=== PATIENT | female | born 1990 | race Caucasian/White ===

== ENCOUNTER 2017-07-03 17:40 | Inpatient (IN) ==
[2017-07-03] MEDS ORDERED: ONDANSETRON 4 MG/2 ML VIAL IV PRN ×2 (17:48→17:56)
[2017-07-03] MEDS ORDERED: BUTORPHANOL 2 MG/ML VIAL IV PRN (17:48)
[2017-07-03] MEDS ORDERED: OXYTOCIN/LR 20 UNIT/1,000 ML BAG IV ONE ×2 (17:50→17:56)
--- NOTE | 2017-07-03 17:54 | OB/GYN History & Physical ---
History of Present Illness Chief complaint: Active labor ruptured membranes History of present illness: Ms. Nuñez is a 27 year old female 3 para 1 at 40 weeks estimated gestational age followed by Dr. Velasco who states she broke her bag of water an hour ago and consequently proceeded into the hospital from the [employer] [place]. On arrival patient did be completely dilated and . 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 General appearance: normal weight - Head Head exam: Present: normal inspection, normocephalic, atraumatic - Respiratory Respiratory exam: Present: clear to auscultation bilaterally - Breast Breasts: as per HPI Menstruation: as per HPI - Cardiovascular Cardiovascular exam: Present: regular rate and rhythm - GI/Abdominal GI/Abdominal exam: Present: normal bowel sounds - Extremities Exam Extremities exam: Present: normal inspection, normal capillary refill - Back Exam Back exam: Present: normal inspection - Neurological Exam Neurological exam: Present: alert, oriented X3 - Psychiatric Psychiatric exam: Present: normal affect, normal mood - Skin Skin exam: Present: normal color Assessment and Plan (1) 40 weeks gestation of Status: Acute Current Visit: Yes (2) Active labor Status: Acute Current Visit: Yes (3) Spontaneous rupture of membranes Status: Acute Current Visit: Yes
[2017-07-03] MEDS ORDERED: WITCH HAZEL PADS 100/JAR TOP PRN (17:56)
[2017-07-03] MEDS ORDERED: BISACODYL 10 MG SUPP RECTAL PRN (17:56)
[2017-07-03] MEDS ORDERED: BENZOCAINE 20%/MENTHOL 0.5% SPRAY 56 GM CAN TOP PRN (17:56)
[2017-07-03] MEDS ORDERED: ACETAMINOPHEN 325 MG TABLET PO PRN (17:56)
[2017-07-03] MEDS ORDERED: LANOLIN 50% CREAM 0.3 OZ TUBE TOP PRN (17:56)
[2017-07-03] MEDS ORDERED: oxyCODONE/ACETAMINOPHEN 5-325 MG TABLET PO PRN ×2 (17:56)
[2017-07-03] MEDS ORDERED: HYDROCORTISONE 2.5% RECTAL CREAM 30 GM TUBE TOP PRN (17:56)
--- NOTE | 2017-07-03 17:56 | OB/GYN Progress Note ---
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 Munroe dictating vaginal delivery And in LDR environment under sterile conditions, the patient progressed to completely dilated. She was allowed to push and under no anesthesia had a normal spontaneous vaginal delivery of a live born [male] unweighed [ Apgars 9 and 9] over a intact perineum. The 's nose and oropharynx were bulb and DeLee suctioned, and the had spontaneous cry after delivery. There is noted to be a nuchal cord 1 which was easily reduced the cord was doubly clamped and cut and the infant was handed over to the pediatric team for care. Cord blood was obtained the placenta delivered spontaneously intact and IV Pitocin was done. There were no cervical tears. There were no periurethral tears. Estimated blood loss was 250 mL. There were no complications. The bladder was emptied using a catheter prior to delivery. All sponge needle and instrument counts were correct -3 at the end of the delivery. The was taken to nursery in stable condition
[2017-07-03] MEDS ORDERED: LACTATED RINGERS 1,000 ML IV SCH (18:00)
[2017-07-03] MEDS ORDERED: RHO(D) IMMUNE GLOBULIN 300 MCG SYRINGE IM ONE (18:00)
[2017-07-03] MEDS ORDERED: MEASLES/MUMPS/RUBELLA VACCINE 0.5 ML VIAL SUBCUT ONE (18:00)
[2017-07-03] MEDS ORDERED: DIPH/TET/ACEL PERT BOOSTER VACCINE 0.5 ML VIAL IM ONE (18:00)
[2017-07-03 18:32] LABS: Basophils # 0.1 10*3/uL (0.0-0.2); Basophils % 0.5 % (0.0-0.8); Eosinophils # 0.6 10*3/uL (0.0-0.87); Eosinophils % 4.5 % (0.00-10.9); Hematocrit 40.9 VOL% (35.7-47.0); Hemoglobin 14.4 GM/DL (12.0-16.0); Immature Granulocytes % 0.6 %; Immature Granulocytes Absolute 0.08 #; Lymphocytes # 2.2 10*3/uL (1.4-4.0); Lymphocytes % 17.1 % (21.3-54.2); Mean Corpuscular HGB Conc 35.2 GM/DL (32-36); Mean Corpuscular Hemoglobin 31 PG (27-34); Mean Corpuscular Volume 87.2 FL (87-102); Mean Platelet Volume 10.6 FL (9.6-12.0); Monocytes # 0.8 10*3/uL (0.11-0.8); Monocytes % 6.3 % (1.7-12.7); Neutrophils # 9.3 10*3/uL (1.4-7.4); Platelet Count 117 T/CUMM (130-400); Red Blood Count 4.69 MC/CUMM (3.8-5.5); Red Cell Distribution Width 12.4 % (9.3-17.3)
[2017-07-03 18:58] LABS: Albumin 2.8 G/DL (3.4-5.0); Bilirubin,Total 0.8 MG/DL (0.2-1.0); Calcium 9.3 MG/DL (8.5-10.1); Osmolality,Calculated 272.8 MOS/KG (273-304); Potassium 3.5 MMOL/L (3.5-5.1); Total Protein 6.8 G/DL (6.4-8.3)
[2017-07-03] MEDS: DOCUSATE SODIUM 100 MG CAPSULE PO SCH (22:34)
[2017-07-03] MEDS: guaiFENesin 200 MG/10 ML UDCUP PO PRN (23:56)
[2017-07-03] MEDS: IBUPROFEN 800 MG TABLET PO PRN (23:56)
[2017-07-04] MEDS: guaiFENesin 200 MG/10 ML UDCUP PO PRN (04:25)
[2017-07-04 05:28] LABS: Basophils # 0.1 10*3/uL (0.0-0.2); Basophils % 0.4 % (0.0-0.8); Eosinophils # 0.4 10*3/uL (0.0-0.87); Eosinophils % 2.4 % (0.00-10.9); Hemoglobin 12.1 GM/DL (12.0-16.0); Immature Granulocytes Absolute 0.16 #; Lymphocytes # 1.6 10*3/uL (1.4-4.0); Lymphocytes % 9.6 % (21.3-54.2); Mean Corpuscular HGB Conc 34.6 GM/DL (32-36); Mean Corpuscular Hemoglobin 30 PG (27-34); Mean Corpuscular Volume 87.1 FL (87-102); Mean Platelet Volume 10.8 FL (9.6-12.0); Monocytes # 1.1 10*3/uL (0.11-0.8); Monocytes % 6.7 % (1.7-12.7); Neutrophils # 13.2 10*3/uL (1.4-7.4); Neutrophils % 79.9 % (38.7-73.9); Platelet Count 106 T/CUMM (130-400); Red Blood Count 4.02 MC/CUMM (3.8-5.5); Red Cell Distribution Width 12.2 % (9.3-17.3); White Blood Count 16.5 T/CUMM (4-12)
[2017-07-04] MEDS: IBUPROFEN 800 MG TABLET PO PRN ×2 (06:33→16:58)
[2017-07-04] MEDS: DOCUSATE SODIUM 100 MG CAPSULE PO SCH (08:57)
--- NOTE | 2017-07-04 09:26 | OB/GYN Progress Note ---
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: Patient is doing well she is eating ambulating and voiding She is afebrile and her vital signs are stable Her fundus is firm and contracted She has decreased lochia Assessment #1 day #1 doing well Plan continue present management with expected DC tomorrow Exam OFFICE MANAGER RECEPTIONIST - Constitutional Vitals: Vital Signs Temp Pulse Pulse Pulse Resp BP Pulse Ox 07/04/17 04:00 97.5 F L 87 20 125/70 97 07/03/17 23:56 98.5 F 91 H 20 125/83 98 07/03/17 23:00 98.0 F 90 20 134/81 97 07/03/17 22:00 98.9 F 101 H 20 118/81 97 07/03/17 21:30 97.2 F L 91 H 20 121/85 97 07/03/17 21:00 97.5 F L 86 20 117/72 96 07/03/17 20:00 98.7 F 85 85 17 136/86 Results - Labs CBC & BMP: 07/04/17 04:18 07/03/17 18:19
[2017-07-04 09:48] VITALS: BP 122/80
--- NOTE | 2017-07-05 10:56 | Discharge Summary ---
Hospital Course - Hospital Course Hospital Course: patient did well. She had quick return of bowel bladder function. She remained afebrile and normotensive throughout hospitalization. She requested early discharge of her baby was able to go home early. She is instructed to follow-up with her doctor in 2 weeks Diagnosis - Discharge Diagnosis (1) 40 weeks gestation of Status: Acute (2) Active labor Status: Acute (3) Spontaneous rupture of membranes Status: Acute Specialty Discharge - Follow Up or Referrals Follow up with: James Munroe MD [Primary Care Provider] - 2 Weeks (Please call office Thursday and schedule a 2 week follow up appointment) Discharge Plan - Discharge Data Condition at Discharge: Stable Discharge Diet: regular diet Activity: increase activity as tolerated, other (Pelvic rest) Hygiene: may shower Weight Bearing at Discharge: full weight bearing Driving: no restrictions Contact your physician if you experience:: fever over 101, Difficulty voiding, Redness or swelling, Nausea/Vomiting, Shortness of breath, Bleeding, pain uncontrolled by pain medications - Discharge Medications Continue Sertraline HCl 1 tablet PO DAILY - Follow Up or Referral Follow Up: James Munroe MD [Primary Care Provider] - 2 Weeks (Please call office Thursday and schedule a 2 week follow up appointment) - Forms/Instructions Instructions: Acetaminophen/Codeine (By mouth), Ibuprofen (By mouth), Perineal Care (DC), Vaginal Delivery (DC), Bleeding (DC) DS: Provider Date of admission: 07/03/17 17:53 Primary care physician: Marcela Webb Attending physician on admission: Marcela Webb Consults: 07/03/17 17:56 Consult to C 40A Crew Chief [CONS] Routine Consult C 40A Crew Chief: Breast Feeding Discharging clinician: Marcela Webb Expected date of discharge: 07/04/17
== END 2017-07-04 18:25 | disposition home or self-care (01) | DRG 775 ==
LOC: N.LDOUT 17:40 → N.LD 17:51 → N.OB 21:25
PROVIDERS: ADMIT Specialist; ATTEND Specialist